=== PATIENT | male | born 1995 | race Caucasian/White ===

== ENCOUNTER 2019-04-23 11:17 | Emergency (ER) | payer SELFPAY ==
[~2019-04-23] VITALS: Ht 188 cm; Wt 120.5 kg
[~2019-04-23 11:17] MED LIST: LEVBID0.375 MG; LEVSIN0.125 M1 PO; NORCO 325 MG-7.1 TAB PO
[2019-04-23 11:21] VITALS: BP 154/99; TEMP 98.8
[2019-04-23 14:05] VITALS: PULSE 79
== END 2019-04-23 14:05 | disposition home or self-care (01) ==
LOC: COL.ER 11:17
DX: S69.92XA Unspecified injury of left wrist, hand and finger(s), initial encounter (principal); W46.0XXA Contact with hypodermic needle, initial encounter; Y92.59 Other trade areas as the place of occurrence of the external cause

== ENCOUNTER 2019-04-23 17:09 | Observation (INO) | payer SELFPAY ==
[2019-04-23] VITALS (7 sets, daily range): BP systolic 135–145; BP diastolic 64–82; PULSE 77–99; TEMP 98.4–98.6
[~2019-04-23] VITALS: Ht 188 cm; Wt 120.5 kg
--- NOTE | 2019-04-23 21:30 | NUR ---
Received report from LACHO Bond. Pt arrived to the floor alert and oriented. Pt was at his bedside. Pt vitals were all within normal limits. Pt lungs were clear, and heart sounds were normal S1 &S2 sounds. Pt has 20G to Right AC. Pt left arm had carlos and bulky dressing. Pt was able to tolerate sips of water and was able to eat jello. Pt did come to the floor with 2 liters of O2 but was able to maintain within normal limits without oxygen. Pt was able to ambulate with no problems at this time. Pt call light is within reach.
--- NOTE | 2019-04-23 23:20 | NUR ---
Discharge instructions given both verbal and handwritten. Discussed f/u appt, s/s of infection, activity and home medications. Denies questions/concerns. Take home norco pack given. Prescription given. IV DCd-cath intact. Pushed off [place] in wheelchair by LACHO Houston and spouse in stable condition.
== END 2019-04-23 23:45 | disposition home or self-care (01) ==
LOC: COL.ER 17:09 → SURG 20:06
PROVIDERS: ADMIT Orthopaedic Surgery
DX: M65.842 Other synovitis and tenosynovitis, left hand (principal); T79.A9XA Traumatic compartment syndrome of other sites, initial encounter; F17.220 Nicotine dependence, chewing tobacco, uncomplicated; K21.9 Gastro-esophageal reflux disease without esophagitis; G43.909 Migraine, unspecified, not intractable, without status migrainosus
CPT/HCPCS: J0330; J0690; J1170; J2704; J3010